=== PATIENT | female | born 1970 | race African-American/Black ===

== ENCOUNTER 2016-11-11 05:45 | Emergency (ER) | payer BC ==
[~2016-11-11] VITALS: Ht 170.2 cm; Wt 114.7 kg
[~2016-11-11 05:45] MED LIST: ADVIL,NUPRIN,M200 MG PO; LISINOPRIL20 MG PO; MEGACE40 MG PO; PANTOPRAZOLE SO40 MG PO
[2016-11-11 06:10] LABS: HEMATOCRIT 34.8 % (36.0-46.0); MCH 30.2 PG (29.0-34.0); MCHC 32.8 G/DL (30.0-36.0); MCV 92.3 FL (83-99); MEAN PLAT.VOLUME 8.6 uM^3 (9.5-12.4); PLATELET COUNT 241 K/uL (156-360); RBC DIS.WIDTH-CV 12.8 % (11.8-14.6); RBC DIS.WIDTH-SD 43.3 % (39-53); RED BLOOD COUNT 3.77 M/uL (3.80-5.20); WHITE BLOOD COUNT 7.2 K/uL (4.1-10.2)
[2016-11-11 06:27] LABS: CHLORIDE 99 mEq/L (99-109); POTASSIUM 3.2 mEq/L (3.7-5.4); SODIUM 138 mEq/L (136-147)
[2016-11-11 06:29] LABS: GLUCOSE 103 mg/dL (70-99)
[2016-11-11 06:30] LABS: ANION GAP 12 MEQ/L (2-14)
[2016-11-11 06:31] LABS: TOTAL BILIRUBIN 0.8 mg/dL (0.0-1.0)
[2016-11-11 06:32] LABS: ALKALINE PHOSPHATASE 83 IU/L (3-129)
[2016-11-11 06:33] LABS: GFR ESTIMATE (CALCULATED) > 59 mL/min/
[2016-11-11 06:34] LABS: UREA NITROGEN (BUN) 10 mg/dL (9-23)
[2016-11-11 06:43] LABS: QUANTITATIVE HCG < 4.0 MIU/ML
[2016-11-11 07:51] LABS: COLOR YELLOW ((YELLOW)); SPECIFIC GRAVITY 1.005 (1.000-1.030)
[2016-11-11 07:52] LABS: ADD MIUA? YES; BILIRUBIN NEGATIVE; BLOOD MODERATE; GLUCOSE (STRIP) NEGATIVE; KETONES NEGATIVE; LEUKOCYTES NEGATIVE; NITRITE NEGATIVE; PROTEIN (STRIP) NEGATIVE; UROBILINOGEN 0.2 MG/DL (0.2-1.0)
[2016-11-11 07:54] LABS: EPITHELIAL CELLS 2+ /HPF; RED BLOOD CELLS 0-5 /HPF (0-5); WHITE BLOOD CELLS 0-5 /HPF (0-5)
[2016-11-11 07:55] LABS: BACTERIA 1+ /HPF; MUCUS TRACE /LPF; UCUL ADDED? NO; URINE COMMENT MIUA ON UNSPUN URINE
[2016-11-11] MEDS ORDERED: LOMOTIL TABLET1 EACH PO (08:58)
[2016-11-11] MEDS ORDERED: BENTYL20 MG PO (08:58)
[2016-11-11] MEDS ORDERED: ZOFRAN4 MG PO (08:58)
[2016-11-11 09:25] VITALS: BP 123/60
== END 2016-11-11 09:26 | disposition home or self-care (01) ==
LOC: EME 05:45
DX: R10.9 Unspecified abdominal pain (principal); R19.7 Diarrhea, unspecified; R11.0 Nausea; I10 Essential (primary) hypertension; Z90.49 Acquired absence of other specified parts of digestive tract
CPT/HCPCS: 80053; 81003; 84702; 85027; 87493; 99281; 99285; J2405; J7030

== ENCOUNTER 2017-11-11 18:20 | Observation (INO) | payer BC ==
[~2017-11-11] VITALS: Ht 170.2 cm; Wt 114.9 kg
[~2017-11-11 18:20] MED LIST changes: +BENTYL20 MG PO; +LOMOTIL TABLET1 EACH PO; +ZOFRAN4 MG PO
[2017-11-11 19:27] LABS: HEMATOCRIT 35.6 % (36.0-46.0); HEMOGLOBIN 11.9 G/DL (11.9-15.5); MCH 30.3 PG (29.0-34.0); MCHC 33.4 G/DL (30.0-36.0); MCV 90.6 FL (83-99); NRBC (%) 0.3 /100 WBC (0-0); PLATELET COUNT 265 K/uL (156-360); RBC DIS.WIDTH-CV 13.5 % (11.8-14.6); RBC DIS.WIDTH-SD 45.1 % (39-53); RED BLOOD COUNT 3.93 M/uL (3.80-5.20); WHITE BLOOD COUNT 7.6 K/uL (4.1-10.2)
[2017-11-11 19:41] LABS: CHLORIDE 98 mEq/L (99-109); POTASSIUM 3.7 mEq/L (3.7-5.4); SODIUM 138 mEq/L (136-147)
[2017-11-11 19:43] LABS: GLUCOSE 97 mg/dL (70-99)
[2017-11-11 19:47] LABS: CREATININE 0.9 mg/dL (0.6-1.3); GFR ESTIMATE (CALCULATED) > 59 mL/min/
[2017-11-11 19:48] LABS: UREA NITROGEN (BUN) 10 mg/dL (9-23)
[2017-11-11 20:01] LABS: ALBUMIN 4.1 g/dL (3.2-4.8)
[2017-11-11 20:04] LABS: TOTAL PROTEIN 7.3 g/dL (6.4-8.3)
[2017-11-11 20:06] LABS: TOTAL BILIRUBIN 0.8 mg/dL (0.0-1.0)
[2017-11-11 20:07] LABS: ALKALINE PHOSPHATASE 100 IU/L (3-129)
[2017-11-11 20:08] LABS: PTT 28.7 SEC (25-37)
[2017-11-11 20:09] LABS: AST (GOT) 16 IU/L (2-34); DIRECT BILIRUBIN 0.3 mg/dL (0.0-0.3)
[2017-11-11 20:10] LABS: ALT (GPT) 17 IU/L (3-49); LIPASE 39 U/L (1.0-51.0)
[2017-11-11 20:37] LABS: TROP-I INTERPRETATION NEGATIVE; TROPONIN-I < 0.01 ng/mL (0.0-0.30)
[2017-11-11] MEDS ORDERED: TRAMADOL HCL50 MG PO (21:17)
[2017-11-11] MEDS ORDERED: ATORVASTATIN CA20 MG PO (21:17)
[2017-11-11] MEDS ORDERED: LISINOPRIL-HCT1 EAC3 PO (21:18)
[2017-11-11] MEDS ORDERED: ERGOCALCIF50000 UNIT PO (21:18)
[2017-11-11] MEDS ORDERED: TOPIRAMATE25 MG PO (21:19)
[2017-11-11] MEDS ORDERED: LO-DOSE ASPIRIN81 M2 PO (21:20)
[2017-11-11] MEDS ORDERED: MAPAP PO (21:22)
[2017-11-11 22:17] LABS: APPEARANCE CLEAR ((CLEAR)); BILIRUBIN NEGATIVE; BLOOD MODERATE; COLOR STRAW ((YELLOW)); GLUCOSE (STRIP) NEGATIVE; KETONES NEGATIVE; LEUKOCYTES NEGATIVE; NITRITE NEGATIVE; PROTEIN (STRIP) NEGATIVE; SPECIFIC GRAVITY 1.011 (1.000-1.030); UROBILINOGEN 0.2 MG/DL (0.2-1.0)
[2017-11-11 22:24] LABS: BACTERIA RARE /HPF; EPITHELIAL CELLS RARE /HPF; MUCUS TRACE /LPF; UCUL ADDED? NO; WHITE BLOOD CELLS 0-5 /HPF (0-5)
[2017-11-11 22:29] LABS: HDL CHOLESTEROL 42 MG/DL (Desirable>=50); LDL CHOLESTEROL 131 mg/dL (Desirable<100); NON-HDL CHOLESTEROL 154 mg/dL (Desirable<160); TOTAL CHOLESTEROL 196 mg/dL (Desirable<200); TRIGLYCERIDES 115 MG/DL (Normal: <150)
[2017-11-11 23:03] VITALS: BP 136/63
[2017-11-12 04:49] VITALS: BP 109/56
[2017-11-12 08:01] VITALS: BP 128/87
[2017-11-12 10:44] LABS: HEMOGLOBIN A1c (GLYCOHEMOGLOB) 5.8 % (Below 5.7)
[2017-11-12] MEDS ORDERED: ATORVASTATIN CA40 MG PO (11:21)
[2017-11-12 11:26] VITALS: BP 116/61
== END 2017-11-12 12:00 | disposition home or self-care (01) ==
LOC: EME 18:20 → 4SOUTH 21:04 → EDOF 21:04 → ENRESERV 21:06 → 4SOUTH 22:49
PROVIDERS: Emergency Medicine; Physician Assistant
DX: R20.0 Anesthesia of skin (principal); G43.909 Migraine, unspecified, not intractable, without status migrainosus; K21.9 Gastro-esophageal reflux disease without esophagitis; I10 Essential (primary) hypertension; E78.5 Hyperlipidemia, unspecified; R73.03 Prediabetes; R00.2 Palpitations; Z98.890 Other specified postprocedural states; Z79.82 Long term (current) use of aspirin; Z96.652 Presence of left artificial knee joint; Z90.710 Acquired absence of both cervix and uterus; Z90.49 Acquired absence of other specified parts of digestive tract; Z80.1 Family history of malignant neoplasm of trachea, bronchus and lung; Z83.3 Family history of diabetes mellitus; Z82.49 Family history of ischemic heart disease and other diseases of the circulatory system; Z88.5 Allergy status to narcotic agent
CPT/HCPCS: 70450; 70551; 71045; 80048; 80061; 80076; 81003; 83036; 83690; 83880; 84484; 85027; 85610; 85730; 93005; 99281; 99284; G0378; J1644